=== PATIENT | male | born 1995 | race Caucasian/White ===

== ENCOUNTER 2018-05-28 01:56 | Emergency (ER) | payer OTHER ==
[~2018-05-28] VITALS: Ht 182.9 cm; Wt 63.5 kg
[2018-05-28] MEDS ORDERED: NOHOMEMEDICATIONS (02:07)
[2018-05-28] MEDS ORDERED: KEFLEX500 M1 PO (03:29)
[2018-05-28] MEDS ORDERED: IBUPROFEN 800800 MG PO (03:29)
[2018-05-28 03:38] VITALS: BP 128/75
== END 2018-05-28 03:40 | disposition home or self-care (01) ==
LOC: M.ERS 01:56
DX: L72.0 Epidermal cyst (principal); F17.210 Nicotine dependence, cigarettes, uncomplicated